=== PATIENT | male | born 1955 | race Caucasian/White ===

== ENCOUNTER → 2018-04-04 | Outpatient (CLI) | payer OTHER ==
[~2018-04-04] MED LIST: IOPAMIDOL (ISOVUE-300) 100 ML BTL ONE
== END ==
LOC: CIMAGING 08:19
DX: N13.30 Unspecified hydronephrosis (principal); K83.8 Other specified diseases of biliary tract; R91.1 Solitary pulmonary nodule; T82.855A Stenosis of coronary artery stent, initial encounter; C78.7 Secondary malignant neoplasm of liver and intrahepatic bile duct; C79.51 Secondary malignant neoplasm of bone; C7B.8 Other secondary neuroendocrine tumors; C7A.012 Malignant carcinoid tumor of the ileum
CPT/HCPCS: 74178-PO; Q9967

== ENCOUNTER → 2019-03-13 | Outpatient (CLI) | payer OTHER ==
[~2019-03-13] MED LIST changes: +GADOBUTROL 10 ML VIAL IVP ONE
== END ==
LOC: FIMAGING 10:13
DX: C78.7 Secondary malignant neoplasm of liver and intrahepatic bile duct (principal); C77.1 Secondary and unspecified malignant neoplasm of intrathoracic lymph nodes; C79.51 Secondary malignant neoplasm of bone; C7A.012 Malignant carcinoid tumor of the ileum; J90 Pleural effusion, not elsewhere classified
CPT/HCPCS: 74177; 74183; A9585; Q9967; 82565-PO

== ENCOUNTER → 2019-04-02 | Outpatient (CLI) | payer OTHER | LOC: BHCLAF 09:15 | PROVIDERS: ATTEND Internal Medicine Interventional Cardiology | DX: I51.89 Other ill-defined heart diseases (principal); E34.0 Carcinoid syndrome ==